=== PATIENT | male | born 1970 | race Caucasian/White ===

== ENCOUNTER 2016-11-27 12:59 | Day surgery (SDC) | payer BC ==
[2016-11-27 13:39] LABS: BASOPHILS 0.3 % (0-2); EOSINOPHILS 0.9 % (0-7); HEMATOCRIT 42.5 % (36.0-48.0); HEMOGLOBIN 14.6 g/dL (12-16); IMMATURE GRANULOCYTES 0.5 % (0-5); LYMPHOCYTES 11.4 % (15-50); MCH 32.7 pg (26.0-34.0); MCHC 34.4 g/dL (31.0-37.0); MCV 95.1 fL (80.0-100.0); MEAN PLATELET VOLUME 9.7 fL (7.4-10.4); MONOCYTES 8.1 % (2-11); NEUTROPHILS 78.8 % (40-80); PLATELET COUNT 198 10x3/uL (130-400); RBC 4.47 10x6/uL (4.00-5.40); RDW 13.7 % (11.5-14.5); WBC 12.9 10x3/uL (4.8-10.8)
[2016-11-27 13:51] LABS: ALBUMIN 4.4 g/dL (3.4-5.0); ANION GAP 14.8 mmol/L (8-16); BILIRUBIN - TOTAL 1.04 mg/dL (0.2-1.3); CALCIUM 9.1 mg/dL (8.5-10.1); CARBON DIOXIDE 29.1 mmol/L (21.0-32.0); CREATININE - SERUM 1.2 mg/dL (0.6-1.3); POTASSIUM - SERUM 3.9 mmol/L (3.5-5.1); PROTEIN - SERUM 8.4 g/dL (6.4-8.2)
[2016-11-27 14:22] LABS: APPEARANCE HAZY (CLEAR); BILIRUBIN NEGATIVE (NEGATIVE); COLOR YELLOW (YELLOW); GLUCOSE NEGATIVE (NEGATIVE); KETONE NEGATIVE (NEGATIVE); NITRITE NEGATIVE (NEGATIVE); PROTEIN NEGATIVE (NEGATIVE); UROBILINOGEN NORMAL (NORMAL)
[2016-11-27 14:23] LABS: BACTERIA MODERATE /hpf (NONE SEEN); EPITHELIAL CELLS 0-5 /hpf (0-5); LEUKOCYTE ESTERASE TRACE (NEGATIVE); MUCUS <1+ /lpf (NONE SEEN); RED CELLS - URINE 25-50 /hpf (0-5); WHITE CELLS - URINE 0-5 /hpf (0-5)
--- NOTE | 2016-11-27 23:06 | NUR ---
AWAKE ALERT ATTEMPTING TO URINATE AT THIS TIME IN ROOM.
--- NOTE | 2016-11-28 04:24 | NUR ---
VOICING WITHOUT DIFFICULTY. DISCHARGED TO HOME WIHT .
--- NOTE | 2016-11-29 09:10 | OP ---
PATIENT NAME: MANOLO ALAS MEDICAL RECORD: [id number] :66 [place] [place] DATE: SURGEON: MATTHEW BARRAZA MD DATE OF OPERATION: 11/27/2016 SURGEON: Matthew Barraza MD ANESTHESIA: General anesthesia by Dr. Cowart. PREOPERATIVE DIAGNOSIS: Left mid ureteral 5-mm stone. POSTOPERATIVE DIAGNOSIS: Left mid ureteral 5-mm stone, radiolucent stone. PROCEDURE: Cystoscopy, left ureteroscopy and stone extraction, left ureteral stent insertion, 6-Welsh x 28 cm with string attached. SPECIMEN: Left ureteral stone. COMPLICATIONS: None. CLINICAL HISTORY: This is a 46-year-old male who came to the Emergency Room with severe left-sided flank pain and nausea. He had a CT scan showing hydronephrosis due to a left mid ureteral stone. No other stones were visible. I was consulted to the Emergency Room. We put him on the OR schedule to have the stone extracted. 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 DESCRIPTION OF PROCEDURE: The patient was given induction of general anesthesia. He was then placed in the dorsal lithotomy position and prepped and draped. Uro-Jet lidocaine jelly was instilled into the urethra. A 21-Welsh cystoscope with 30-degree lens was used for visualization. Fluoroscopy did not reveal any radiodense stones. Going into the urethra, we found no abnormalities. Prostatic urethra was not obstructive. In the bladder, he has single ureteral orifices with no bladder tumors. A sensor wire was placed into the left ureteral orifice and pushed off into the left renal pelvis. Again, looking along the course of the wire, we could not find a radiodense stone. A 21-Welsh x 4 cm long ureteral dilation balloon was placed at the left ureteral orifice. The ureteral orifice was dilated with 18 atmospheres of pressure for a few seconds. The balloon was then deflated and the ureteral dilation balloon was entirely removed. The cystoscope lens was then removed, leaving the wire and sheath in place. The sheath acts to protect the urethra from injury from the ureteroscope. The rigid ureteroscope was used. We went beside the wire. We identified the stone in the mid ureter. A 4-wire Marr basket was placed around the stone and the stone was removed with the ureteroscope as a unit. We then backloaded the wire into the cystoscope. Over the wire, a 6-Welsh x 28 cm ureteral stent was placed. Once the stent was in correct position, the wire was withdrawn entirely. The distal end of the stent was pushed into the bladder using a pusher. The string on the distal end of stent was maintained. It hangs out of the penis. The scope was used to empty the bladder and the scope was entirely removed. The patient's string was tied to itself in a knot and cut shorter. The patient will be discharged home tonight. He is going to [place] on vacation and his will remove the stent in a few days' time by pulling on the string. I will see him in followup after he returns from [place] to review the stone analysis with him. TRANSINT:[id number] Voice Confirmation ID: [id number] DOCUMENT ID: [id number] OPERATIVE REPORT [id number] MANOLO ALAS, MATTHEW Mendosa MD at 0910 CC: [id number] DICTATION DATE: 11/27/162099 [facility] DIRECTOR: 11/28/[address] [facility] 11/28/16 [id number] [place] [address]
== END 2016-11-28 04:43 | disposition home or self-care (01) ==
LOC: EDSEX 12:59 → D.ER 12:59 → D.MS 21:25 → D.PCOM 21:25
PROVIDERS: Emergency Medicine; Urology
DX: N20.1 Calculus of ureter (principal); I25.10 Atherosclerotic heart disease of native coronary artery without angina pectoris; K21.9 Gastro-esophageal reflux disease without esophagitis; E66.9 Obesity, unspecified; Z01.812 Encounter for preprocedural laboratory examination

== ENCOUNTER 2017-12-05 11:07 | Emergency (ER) | payer BC ==
[~2017-12-05] VITALS: Ht 177.8 cm; Wt 129.5 kg
[2017-12-05 11:45] VITALS: Ht 177.8 cm; Wt 129.5 kg
[2017-12-05 18:36] VITALS: BP 107/71
== END 2017-12-05 18:46 | disposition other institution (70) ==
LOC: D.ER 11:07
DX: N13.2 Hydronephrosis with renal and ureteral calculous obstruction (principal); R10.9 Unspecified abdominal pain

== ENCOUNTER 2018-07-27 12:43 | Emergency (ER) | payer OTHER ==
[~2018-07-27] VITALS: Ht 177.8 cm; Wt 136.4 kg
[2018-07-27 12:48] VITALS: Ht 177.8 cm; Wt 136.4 kg
[2018-07-27 13:27] LABS: APPEARANCE CLEAR (CLEAR); BILIRUBIN NEGATIVE (NEGATIVE); COLOR YELLOW (YELLOW); GLUCOSE NEGATIVE (NEGATIVE); KETONE NEGATIVE (NEGATIVE); NITRITE NEGATIVE (NEGATIVE); PROTEIN 1+ mg/dL (NEGATIVE); UROBILINOGEN NORMAL (NORMAL)
[2018-07-27 13:28] LABS: BACTERIA FEW /hpf (NONE SEEN); EPITHELIAL CELLS 0-5 /hpf (0-5); WHITE CELLS - URINE 0-5 /hpf (0-5)
[2018-07-27 14:41] LABS: BASOPHILS 0.7 % (0-2); EOSINOPHILS 2.6 % (0-7); HEMATOCRIT 41.5 % (42.0-54.0); HEMOGLOBIN 14.2 g/dL (13.5-17.5); IMMATURE GRANULOCYTES 0.4 % (0-5); LYMPHOCYTES 21.9 % (15-50); MCH 32.1 pg (26.0-34.0); MCHC 34.2 g/dL (31.0-37.0); MCV 93.7 fL (80.0-100.0); MEAN PLATELET VOLUME 9.7 fL (7.4-10.4); MONOCYTES 5.2 % (2-11); NEUTROPHILS 69.2 % (40-80); PLATELET COUNT 213 10x3/uL (130-400); RBC 4.43 10x6/uL (4.20-6.10); RDW 13.3 % (11.5-14.5); WBC 9.6 10x3/uL (4.8-10.8)
[2018-07-27 15:41] LABS: ALBUMIN 4.2 g/dL (3.4-5.0); ALKALINE PHOSPHATASE 61 U/L (46-116); ALT (SGPT) 73 U/L (10-68); BILIRUBIN - TOTAL 0.74 mg/dL (0.2-1.3); CALC OSMOLALITY 275 mosm/kg (275-300); CALCIUM 8.9 mg/dL (8.5-10.1); CHLORIDE - SERUM 100 mmol/L (98-107); CREATININE - SERUM 1.1 mg/dL (0.6-1.3); GLUCOSE 103 mg/dL (74-106); POTASSIUM - SERUM 3.7 mmol/L (3.5-5.1); PROTEIN - SERUM 8.1 g/dL (6.4-8.2); SODIUM 137 mmol/L (136-145); UREA NITROGEN 17 mg/dL (7-18); eGFR NON AFRICAN AMERICAN 75 mL/min (90-120)
[2018-07-27 16:24] VITALS: BP 128/73
== END 2018-07-27 16:25 | disposition home or self-care (01) ==
LOC: D.ER 12:43
PROVIDERS: Family Medicine
DX: N20.1 Calculus of ureter (principal)

== ENCOUNTER 2020-02-14 11:30 | Emergency (ER) | payer OTHER ==
[~2020-02-14] VITALS: Ht 177.8 cm; Wt 134.1 kg
[2020-02-14 11:41] VITALS: BP 142/84; Ht 177.8 cm; Wt 134.1 kg
[2020-02-14 12:11] LABS: BASOPHILS 0.6 % (0-2); EOSINOPHILS 3.2 % (0-7); HEMATOCRIT 40.8 % (42.0-54.0); HEMOGLOBIN 13.7 g/dL (13.5-17.5); IMMATURE GRANULOCYTES 0.3 % (0-5); LYMPHOCYTES 24.5 % (15-50); MCH 31.7 pg (26.0-34.0); MCHC 33.6 g/dL (31.0-37.0); MCV 94.4 fL (80.0-100.0); MEAN PLATELET VOLUME 9.2 fL (7.4-10.4); MONOCYTES 8.7 % (2-11); NEUTROPHILS 62.7 % (40-80); PLATELET COUNT 196 10x3/uL (130-400); RBC 4.32 10x6/uL (4.20-6.10); RDW 13.6 % (11.5-14.5); WBC 7.9 10x3/uL (4.8-10.8)
[2020-02-14 12:28] LABS: BILIRUBIN NEGATIVE (NEGATIVE); KETONE NEGATIVE (NEGATIVE); NITRITE NEGATIVE (NEGATIVE); UROBILINOGEN NORMAL mg/dL (< 2)
[2020-02-14 12:29] LABS: BACTERIA FEW HPF (NONE SEEN); EPITHELIAL CELLS 0-5 /hpf (0-5); WHITE CELLS - URINE NSEEN HPF (0-1)
[2020-02-14 12:36] LABS: ANION GAP 12.2 mmol/L (8-16); CALCIUM 8.8 mg/dL (8.5-10.1); CARBON DIOXIDE 29.7 mmol/L (21.0-32.0); CREATININE - SERUM 1.2 mg/dL (0.6-1.3); POTASSIUM - SERUM 3.9 mmol/L (3.5-5.1)
[2020-02-14 12:41] LABS: ALBUMIN 4.1 g/dL (3.4-5.0); BILIRUBIN - TOTAL 0.9 mg/dL (0.2-1.3); PROTEIN - SERUM 7.9 g/dL (6.4-8.2)
[2020-02-14] MEDS ORDERED: TORADOL10 MG PO (15:28)
[2020-02-14] MEDS ORDERED: HYDROCODON-ACE1 EA10 PO (15:28)
[2020-02-14] MEDS ORDERED: FLOMAX0.4 MG PO (15:28)
== END 2020-02-14 16:04 | disposition home or self-care (01) ==
LOC: D.ER 11:30
PROVIDERS: Family Medicine
DX: N20.1 Calculus of ureter (principal); R10.9 Unspecified abdominal pain